=== PATIENT | male | born 1980 | race Caucasian/White ===

== ENCOUNTER 2017-01-28 17:16 | Emergency (ER) | payer MEDICAID ==
--- NOTE | 2017-01-28 17:18 | ED Physician Chart ---
Chief Complaint/HPI - Patient Information Date Seen:: 01/28/17 Time Seen:: 17:18 Chief Complaint:: abdominal pain History of Present Illness:: 36-year-old male, otherwise healthy, complains of acute, constant, worsening, severe, 10 out of 10, aching and cramping, nonradiating, right upper quadrant abdominal pain since Saturday. Has associated nausea and vomiting. Allergies:: Allergies Allergy/AdvReac Type Severity Reaction Status Date / Time MDX No Known Allergies - Nka Allergy Verified 01/08/14 23:02 [No Known Allergies - Nka] Historian:: Patient Review:: Nurse's Note Reviewed Review of Systems - Review of Systems Other: Complete system review otherwise unremarkable except as noted in history of present illness. Past Medical History - Past Medical History Past Medical History: No significant medical hx Family History: None Social History: Non Smoker, No Alcohol, No Drug Use, Employed Surgical History: None Psychiatricy History: None Medication: None Family Medical History - Family Member Mother History Unknown: Yes Physical Exam - Physical Examination Other:: INITIAL VITAL SIGNS: Reviewed by me GENERAL: Alert and interactive. Moderate distress due to abdominal pain HEAD: Head is normocephalic and atraumatic EYES: EOMI. PERRL. No scleral icterus. No conjunctival injection ENT: Moist mucous membranes. NECK: Supple. No masses. Full range of motion RESPIRATORY: No tachypnea. Clear breath sounds bilaterally. No wheezing, rales, or rhonchi CV: Regular rate and rhythm. No murmurs, rubs, or gallops ABDOMEN: Soft, non-distended, tenderness to palpation in the right upper quadrant with guarding on deep palpation. No rebound. No masses. EXTREMITIES: No deformity. No cyanosis. No edema. SKIN: Warm and dry. No obvious rashes. NEUROLOGIC: Alert and oriented. Face is symmetric. Speech is normal. Moves all extremities equally. Motor and sensory distally intact. Labs/Radiology/EKG Results - Lab Results Results: Laboratory Results WBC 11.0 Th/cmm (4.8-10.8) H 01/28/17 17:37 RBC 5.57 Mil/cmm (4.30-5.70) 01/28/17 17:37 Hgb 17.0 gm/dL (13.2-17.3) 01/28/17 17:37 Hct 49.0 % (39.0-49.0) 01/28/17 17:37 MCV 88.1 fl (80-99) 01/28/17 17:37 MCH 30.6 pg (26.0-30.0) H 01/28/17 17:37 MCHC Differential 34.7 pg (28.0-36.0) 01/28/17 17:37 RDW 13.0 % (11.5-20.0) 01/28/17 17:37 Plt Count 214 Th/cmm (150-400) 01/28/17 17:37 MPV 9.8 fl 01/28/17 17:37 Neutrophils % 65.4 % (40.0-80.0) 01/28/17 17:37 Lymphocytes % 18.9 % (20.0-50.0) L 01/28/17 17:37 Monocytes % 6.9 % (2.0-10.0) 01/28/17 17:37 Eosinophils % 4.5 % (0.0-5.0) 01/28/17 17:37 Basophils % 4.3 % (0.0-2.0) H 01/28/17 17:37 Sodium 136 mEq/L (136-145) 01/28/17 17:37 Potassium 4.4 mEq/L (3.5-5.1) 01/28/17 17:37 Chloride 101 mEq/L (98-107) 01/28/17 17:37 Carbon Dioxide 28.3 mEq/L (21.0-31.0) 01/28/17 17:37 Anion Gap 11.1 (7.0-16.0) 01/28/17 17:37 BUN 16 mg/dL (7-25) 01/28/17 17:37 Creatinine 0.8 mg/dL (0.7-1.3) 01/28/17 17:37 Est GFR ( Amer) > 60.0 ml/min (>90) 01/28/17 17:37 Est GFR (Non-Af Amer) > 60.0 ml/min 01/28/17 17:37 BUN/Creatinine Ratio 20.0 01/28/17 17:37 Glucose 102 mg/dL (70-105) 01/28/17 17:37 Calcium 10.6 mg/dL (8.6-10.3) H 01/28/17 17:37 Total Bilirubin 0.6 mg/dL (0.3-1.0) 01/28/17 17:37 AST 16 U/L (13-39) 01/28/17 17:37 ALT 19 U/L (7-52) 01/28/17 17:37 Alkaline Phosphatase 49 U/L (34-104) 01/28/17 17:37 Troponin I 0.01 ng/mL (0.01-0.05) 01/28/17 17:37 Total Protein 8.2 gm/dL (6.0-8.3) 01/28/17 17:37 Albumin 4.6 gm/dL (4.2-5.5) 01/28/17 17:37 Globulin 3.6 gm/dL 01/28/17 17:37 Albumin/Globulin Ratio 1.3 (1.0-1.8) 01/28/17 17:37 Amylase 37 U/L (29-103) 01/28/17 17:37 Lipase 54 U/L (11-82) 01/28/17 17:37 Urine Source CLEAN C 01/28/17 17:25 Urine Color YELLOW 01/28/17 17:25 Urine Clarity CLEAR (CLEAR) 01/28/17 17:25 Urine pH 6.5 01/28/17 17:25 Ur Specific [place] 1.020 (1.005-1.030) 01/28/17 17:25 Urine Protein NEGATIVE mg/dL (NEGATIVE) 01/28/17 17:25 Urine Glucose (UA) NEGATIVE mg/dL (NEGATIVE) 01/28/17 17:25 Urine Ketones NEGATIVE mg/dL (NEGATIVE) 01/28/17 17:25 Urine Blood NEGATIVE (NEGATIVE) 01/28/17 17:25 Urine Nitrate NEGATIVE (NEGATIVE) 01/28/17 17:25 Urine Bilirubin NEGATIVE (NEGATIVE) 01/28/17 17:25 Urine Urobilinogen 1.0 E.U./dL (0.2 - 1.0) 01/28/17 17:25 Ur Leukocyte Esterase NEGATIVE (NEGATIVE) 01/28/17 17:25 Urine RBC 0-1 /hpf (0-5) 01/28/17 17:25 Urine WBC 0-2 /hpf (0-5) 01/28/17 17:25 Ur Epithelial Cells RARE /lpf (FEW) 01/28/17 17:25 Urine Bacteria OCCASIONAL /hpf (NONE SEEN) 01/28/17 17:25 - Radiology Results Results: CT abdomen and pelvis without contrast Gallbladder sludge - EKG Interpretations Comments:: 12-lead EKG Interpretation by Milo Negron MD: Says tachycardia with ventricular rate of 102 beats per minute Normal axis Normal intervals No acute ST or T wave changes. No obvious STEMI ED Septic Shock - . Is Septic Shock (SBP<90, OR Lactate>4 mmol\L) present?: No Reassessment (Disposition) - Reassessment Reassessment:: Blood pressure was noted to be elevated over 120/80. There were no signs of hypertension. Discussed the findings with the patient and recommended that the patient follow up with the primary care physician regarding the elevated blood pressure. Acute abdominal pain and nausea due to biliary colic. No signs of obstruction. Patient got IV antiemetics and analgesics. Symptoms totally resolved. Prescription for Zofran and Pepcid. Follow-up PCP 1-2 days. Return to ER precautions given. Patient understands and agrees with the plan. Reassessment Condition:: Improved - Diagnosis Diagnosis:: Acute abdominal pain due to acute biliary colic Elevated blood pressure without the diagnosis of hypertension - Aftercare/Follow up Instructions Aftercare/Follow-Up Instructions:: Counseled pt regarding lab results/diagnosis & need follow up, Refer to Discharge Instructions Medication Prescribed:: Pepcid Zofran - Patient Disposition Discharge/Transfer:: Home Time:: 18:34 Condition at Disposition:: Improved ED Discharge Plan - Patient Disposition Admit/Discharge/Transfer: PT DISCHARGED HOME Condition at Disposition: Improved Instructions: Biliary Colic
[2017-01-28] MEDS ORDERED: Maalox 30 mL Cup PO ONE (17:26)
[2017-01-28] MEDS ORDERED: Sodium Chloride 0.9% 1,000 ML IV ONE (17:26)
[2017-01-28] MEDS ORDERED: Donnatal Liq 5 ML UDC PO ONE (17:26)
[2017-01-28] MEDS ORDERED: Prochlorperazine 5 mg/mL 2mL Vial IVP STA (17:27)
[2017-01-28] MEDS ORDERED: Morphine Sulfate 2 mg/mL 1mL Syr IVP ONE (17:34)
[2017-01-28] MEDS ORDERED: Prochlorperazine 5 mg/mL 2mL Vial ONE (17:44)
[2017-01-28] MEDS ORDERED: Maalox 30 mL Cup ONE (17:44)
[2017-01-28] MEDS ORDERED: Morphine Sulfate 2 mg/mL 1mL Syr ONE (17:44)
[2017-01-28] MEDS ORDERED: Donnatal Liq 5 ML UDC ONE (17:45)
[2017-01-28 17:48] LABS: % BASOPHILS 4.3 % (0.0-2.0); % EOSINOPHILS 4.5 % (0.0-5.0); % LYMPHOCYTES 18.9 % (20.0-50.0); % MONOCYTES 6.9 % (2.0-10.0); % NEUTROPHILS 65.4 % (40.0-80.0); MEAN CELL VOLUME 88.1 fl (80-99); MEAN CORPUSCULAR HEMOGLOBIN 30.6 pg (26.0-30.0); MEAN CORPUSCULAR HGB CONC 34.7 pg (28.0-36.0); MEAN PLATELET VOLUME 9.8 fl; NEUTROPHILE ABSOLUTE 7.1 Th/cmm (1.8-8.0); PLATELET COUNT 214 Th/cmm (150-400); RED BLOOD COUNT 5.57 Mil/cmm (4.30-5.70)
[2017-01-28 18:03] LABS: URINE BILIRUBIN NEGATIVE (NEGATIVE); URINE BLOOD NEGATIVE (NEGATIVE); URINE COLOR YELLOW; URINE GLUCOSE (UA) NEGATIVE (NEGATIVE); URINE KETONE NEGATIVE (NEGATIVE); URINE PH 6.5; URINE PROTEIN NEGATIVE (NEGATIVE)
[2017-01-28 18:04] LABS: URINE BACTERIA OCCASIONAL /hpf (NONE SEEN); URINE EPITHELIAL CELLS RARE /lpf (FEW); URINE RBC 0-1 /hpf (0-5); URINE WBC 0-2 /hpf (0-5)
[2017-01-28 18:16] LABS: ALB/GLOB RATIO 1.3 (1.0-1.8); ALKALINE PHOSPHATASE 49 U/L (34-104); AMYLASE SERUM 37 U/L (29-103); ANION GAP 11.1 (7.0-16.0); BILIRUBIN,TOTAL 0.6 mg/dL (0.3-1.0); BUN - UREA NITROGEN 16 mg/dL (7-25); CALCIUM SERUM 10.6 mg/dL (8.6-10.3); CARBON DIOXIDE 28.3 mEq/L (21.0-31.0); CHLORIDE 101 mEq/L (98-107); CREATININE - SERUM 0.8 mg/dL (0.7-1.3); GLUCOSE 102 mg/dL (70-105); LIPASE 54 U/L (11-82); POTASSIUM SERUM 4.4 mEq/L (3.5-5.1); SGOT 16 U/L (13-39); SGPT/ALT 19 U/L (7-52); SODIUM SERUM 136 mEq/L (136-145)
--- NOTE | 2017-01-29 10:04 | Diagnostic Imaging Report ---
CT abdomen and pelvis without intravenous contrast Indication: Abdominal pain Comparison: None, Technique: Axial images were obtained from the lung bases to the bilateral proximal femurs without IV contrast. Coronal reconstructions were made. total DLP: [id number], CTDI13.2 FINDINGS: Hypoventilatory atelectatic changes of the lung bases are noted. Evaluation of solid organs is limited due to lack of IV contrast. Subcentimeter low-density lesion of the liver is noted to small to characterize but suggestive of the cyst. Distended gallbladder is seen with multiple gallstones. There is mild inflammatory change surrounding the gallbladder wall. No focal splenic or pancreatic lesions. No focal adrenal lesions. There is a 2.7 cm right renal lesion with [employer] sales representative of a cyst. No hydronephrosis or evidence of renal stones. Prostate gland calcifications are noted. Small bowel fat-containing inguinal hernias are noted. Diverticulosis is noted without evidence of diverticulitis. No evidence of acute appendicitis. No evidence of free air. There is small amount of free fluid in the pelvis. The osseous structures demonstrate no acute abnormalities. IMPRESSION: Distended gallbladder with gallstones and mild surrounding inflammatory changes. Findings are most suspicious for cholecystitis. Please correlate with clinical findings. If indicated, nuclear medicine HIDA scan and ultrasound may be obtained for further assessment. Small amount of free fluid in the pelvis. Diverticulosis without evidence of diverticulitis. 2.7 cm right renal lesion with [employer] sales representative of a cyst. The final results were administered to the referring team on 01/29/2017.
== END 2017-01-28 18:45 | disposition home or self-care (01) ==
LOC: ER 17:16
DX: K80.50 Calculus of bile duct without cholangitis or cholecystitis without obstruction (principal); R03.0 Elevated blood-pressure reading, without diagnosis of hypertension
CPT/HCPCS: 99285; 74176; 96374; 96375; 93005; 84484; 36415; 85025; 81001; 82150; 83690; 80053; J2270; J1885; J2405; J0780; J7030